=== PATIENT | male | born 1975 | race Caucasian/White ===

== ENCOUNTER → 2020-01-16 | Outpatient (CLI) | payer BC ==
[~2020-01-16] MED LIST: FUROSEMIDE INJ 10 MG/ML 4 ML VIAL ONE
--- NOTE | 2020-01-16 15:23 | Diagnostic Imaging Report ---
Renal Scan with Lasix Washout Clinical information: Crossing vessel and stricture of ureter, concern for hydronephrosis Technique: Following intravenous administration of 10 mCi of Tc-99m MAG3, dynamic images of the kidneys in the posterior projection were obtained through 40 minutes. Lasix 40 mg was administered intravenously at 10 minutes post injection of the tracer. Report: Left kidney: Perfusion of the left kidney is prompt. The kidney has a normal reniform shape. Extraction of tracer from the blood pool is normal. Clearance of tracer from the renal parenchyma is prompt. The pelvicalyceal system is not dilated although a dilated calyx is seen in the upper pole. Increased pooling of tracer is seen within the dilated calyx in the upper pole. No net drainage of tracer from the pelvicalyceal system is seen prior to administration of Lasix. Washout of tracer from the pelvicalyceal system following administration of Lasix is rapid with a T-1/2 of 5 minutes (normal less than 15 minutes). No significant stasis of tracer is seen within the left ureter. Right kidney: Perfusion to the right kidney is prompt. The right kidney has a normal reniform shape. Extraction of tracer by the renal parenchyma is normal. Clearance of tracer from the renal parenchyma is prompt. The pelvicalyceal system is not dilated. Physiologic pooling of tracer is seen within the pelvicalyceal system. Drainage of tracer from the pelvicalyceal system is prompt and adequate prior to administration of Lasix. No significant stasis of tracer is seen within the right ureter. Differential renal function: The left kidney contributes 46% of total renal function and the right kidney contributes 54% (normal 43-57%). Impression: 1. The function of the left kidney is generally normal. A dilated calyx is present in the upper pole. No hydronephrosis is present. No physiologically significant obstruction of the renal collecting system is present. 2. The function of the right kidney is generally normal. No hydronephrosis is present. No physiologically significant obstruction of the renal collecting system is present. 3. The differential renal function is preserved. Signed by: Dr. Capri Banuelos M.D. on 01/16/2020 3:20 PM
== END ==
LOC: NM 12:31
PROVIDERS: ATTEND Urology
DX: N13.5 Crossing vessel and stricture of ureter without hydronephrosis (principal); N20.0 Calculus of kidney
CPT/HCPCS: 78708; A9562; J1940

== ENCOUNTER → 2020-02-24 | Day surgery (SDC) | payer BC ==
[2020-02-23 13:34] LABS: BASOPHILS # (AUTO) 0.1 (0.0-0.1); BASOPHILS % 0.7 % (0.0-1.0); EOSINOPHILS # (AUTO) 0.4 (0.0-0.4); EOSINOPHILS % 5.7 % (0.0-6.0); HEMATOCRIT 40.5 % (38.2-49.6); HEMOGLOBIN 13.8 g/dL (14.0-18.0); LYMPHOCYTES % 30.2 % (18.0-39.1); MEAN CORPUSCULAR HEMOGLOBIN 30.7 pg (28-32); MEAN CORPUSCULAR HGB CONC 34.1 g/dL (31-35); MEAN CORPUSCULAR VOLUME 90.2 fL (81-99); MONOCYTES # (AUTO) 0.6 (0.2-0.8); MONOCYTES % 8.8 % (4.4-11.3); NEUTROPHILS # (AUTO) 3.7 (2.1-6.9); NEUTROPHILS % 54.5 % (38.7-80.0); PLATELET COUNT 207 x10e3/uL (140-360); RED BLOOD COUNT 4.49 x10e6/uL (4.3-5.7); RED CELL DISTRIBUTION WIDTH 12.4 % (11.7-14.4)
[2020-02-23 14:06] LABS: ALANINE AMINOTRANSFERASE 22 IU/L (0-55); ALBUMIN 3.8 g/dL (3.5-5.0); ALBUMIN/GLOBULIN RATIO 1.2 (0.8-2.0); ALKALINE PHOSPHATASE 48 IU/L (40-150); ANION GAP 10.9 mmol/L (8-16); BLOOD UREA NITROGEN 13 mg/dL (7-26); BUN/CREATININE RATIO 12 (6-25); CALCIUM 8.9 mg/dL (8.4-10.2); CARBON DIOXIDE 24 mmol/L (22-29); CHLORIDE 106 mmol/L (98-107); CREATININE, SERUM 1.05 mg/dL (0.72-1.25); EST GLOMERULAR FILTRATION RATE > 60 ML/MIN (60-); GLUCOSE 113 mg/dL (74-118); POTASSIUM 3.9 mmol/L (3.5-5.1); SODIUM 137 mmol/L (136-145)
[~2020-02-24] MED LIST changes: +ALEVE PO; +ANTIBIOTIC; +B&O 60MG R/S 60 MG SUPP PR ONE; +BENADRYL PO; +CEFTRIAXONE SOD 1 GM/NS 50 ML 50 ML IV ONE; +DEXAMETHASONE SOD PHOS INJ 4 MG/ML VIAL ONE; +FENTANYL CITRATE/PF 100MCG/2 ML INJ ONE; -FUROSEMIDE INJ 10 MG/ML 4 ML VIAL ONE; +IOPAMIDOL 300MG/ML 50ML INFUS..BTL IV ONE; +LIDOCAINE HCL 2% LOCAL INJ 5 ML SDV VIAL INJ ONE; +MIDAZOLAM HCL 2 MG/2 ML VIAL ONE; +MULTIVITAMIN PO; +ONDANSETRON HCL INJ 2MG/ML 2ML 2 MG/ML VIAL ONE; +PROPOFOL IV EMULSION 10 MG/ML 20 ML VIAL ONE; +SEVOFLURANE INHAL SOLN 250 ML PEN BTL ONE; +TYLENOL WITH C1 EACH PO
--- OUTSIDE RECORDS SUMMARY | 2020-02-24 07:52 | XMS REPORT ---
Author [facility] Address Unknown Phone Unavailable Care Team Providers Care Automotive Technology Instructor Name Role Phone ARIK ROQUE Unavailable Unavailable Payers Payer Name Policy Type Policy Number Effective Date Expiration Date Problems This patient has no known problems. Allergies, Adverse Reactions, Alerts Allergy Name Allergy Type Status Severity Reaction(s) Onset Date Inactive Date Treating Clinician Comments No Known Allergies DA Active U 2019-02-09 00:00:00 Medications This patient has no known medications. Results Test Description Test Time Test Comments Text Results Atomic Results Result Comments RENAL SCAN W/LASIX 2020-01-16 15:16:00 [place] [address] Patient Name: YUMIKO STERN MR #: [id number] : 1975 Age/Sex: 44/M Req #: [id number] Adm Physician: Ordered by: ARIK ROQUE MD Report #: [id number] Location: NM Room/Bed: Procedure: [id number] NM/RENAL SCAN W/LASIX Exam Date: Exam Time: REPORT STATUS: Signed Renal Scan with Lasix Washout Clinical information: Crossing vess el and stricture of ureter, concern for hydronephrosis Technique: Following intravenous administration of 10 mCi of Tc-99m MAG3, dynamic images of the kidneys in the posterior projection were obtained through 40 minutes. Lasix 40 mg was administered intravenously at 10 minutes post injection of the tracer. Report: Left kidney: Perfusion of the left kidney is prompt. The kidney has a normal reniform shape. Extraction of tracer from the blood pool is normal. Clearance of tracer from the renal parenchyma is prompt. The pelvicalyceal system is not dilated although a dilated calyx is seen in the upper pole. Increased pooling of tracer is seen within the dilated calyx in the upper pole. No net drainage of tracer from the pelvicalyceal system is seen prior to administration of Lasix. Washout of tracer from the pelvicalyceal system following administration of Lasix is rapid with a T-1/2 of 5 minutes (normal less than 15 minutes). No significant stasis of tracer is seen within the left ureter. Right kidney: Perfusion to the right kidney is prompt. The right kidney has a normal reniform shape. Extraction of tracer by the renal parenchyma is normal. Clearance of tracer from the renal parenchyma is prompt. The pelvicalyceal system is not dilated. Physiologic pooling of tracer is seen within the pelvicalyceal system. Drainage of tracer from the pelvicalyceal system is prompt and adequate prior to administration of Lasix. No significant stasis of tracer is seen within the right ureter. Differential renal function: The left kidney contributes 46% of total renal function and the right kidney contributes 54% (normal 43-57%). Impression: 1. The function of the left kidney is generally normal. A dilated calyx is present in the upper pole. No hydronephrosis is present. No physiologically significant obstruction of the renal collecting system is present. 2. The function of the right kidney is generally normal. No hydronephrosis is present. No physiologically significant obstruction of the renal collecting system is present. 3. The differential renal function is preserved. Signed by: Dr. Dede Banuelos M.D. on 01/16/2020 3:20 PM Dictated By: DEDE BANUELOS MD 1520 Transcribed By: MITCH on 01/16/20 1520 COPY TO: ARIK ROQUE MD HGBA1C% 2019-02-10 10:19:00 HGBA1C% (test code=HGBA1C%) 5.6 %A1C 4.8-6.0 RAPID PLASMA [id number] 09:56:00* Test Item Value Reference Range Comments RAPID PLASMA REAGIN (test code=RPR) NONREACTIVE NONREACTIVE CBC W/AUTO [id number] 09:31:00* Test Item Value Reference Range Comments WHITE BLOOD CELL (test code=WBC) 6.57 x10 3/uL 4.5-11.0 RED BLOOD CELL (test code=RBC) 4.13 x10 6/uL 4.00-5.60 HEMOGLOBIN (test code=HGB) 14.4 g/dL 12.5-16.9 HEMATOCRIT (test code=HCT) 41.6 % 37.5-50.7 MEAN CELL VOLUME (test code=MCV) 100.7 fL 81.0-99.0 MEAN CELL HGB (test code=MCH) 34.9 pg 27.0-33.0 MEAN CELL HGB CONCETRATION (test code=MCHC) 34.6 g/dL 33.0-37.0 RED CELL DISTRIBUTION WIDTH CV (test code=RDW) 14.3 % 11.5-14.5 RED CELL DISTRIBUTION WIDTH SD (test code=RDW-SD) 53.5 fL 37.0-54.0 PLATELET COUNT (test code=PLT) 89 x10 3/uL 150-400 MEAN PLATELET VOLUME (test code=MPV) 10.3 fL 7.0-9.0 NEUTROPHIL % (test code=NT%) 81.3 % 56.0-77.0 IMMATURE GRANULOCYTE % (test code=IG%) 0.3 % 0.0-2.0 LYMPHOCYTE % (test code=LY%) 8.7 % 14.0-32.0 MONOCYTE % (test code=MO%) 8.8 % 4.8-9.0 EOSINOPHIL % (test code=EO%) 0.3 % 0.3-3.7 BASOPHIL % (test code=BA%) 0.6 % 0.0-2.0 NUCLEATED RBC % (test code=NRBC%) 0.0 % 0-0 NEUTROPHIL # (test code=NT#) 5.34 x10 3/uL 2.0-7.6 IMMATURE GRANULOCYTE # (test code=IG#) 0.02 x10 3/uL 0.00-0.03 LYMPHOCYTE # (test code=LY#) 0.57 x10 3/uL 1.0-3.8 MONOCYTE # (test code=MO#) 0.58 x10 3/uL 0.1-0.8 EOSINOPHIL # (test code=EO#) 0.02 x10 3/uL 0.0-0.2 BASOPHIL # (test code=BA#) 0.04 x10 3/uL 0.0-0.2 NUCLEATED RBC # (test code=NRBC#) 0.00 x10 3/uL 0.0-0.1 MANUAL DIFF REQUIRED (test code=MDIFF) NO PLT [id number] 09:31:00* Test Item Value Reference Range Comments PLATELET ESTIMATE (test code=PLTEST) 88-110 THOUSAND ADEQUATE CBC W/AUTO [id number] 08:03:00* Test Item Value Reference Range Comments WHITE BLOOD CELL (test code=WBC) 6.57 x10 3/uL 4.5-11.0 RED BLOOD CELL (test code=RBC) 4.13 x10 6/uL 4.00-5.60 HEMOGLOBIN (test code=HGB) 14.4 g/dL 12.5-16.9 HEMATOCRIT (test code=HCT) 41.6 % 37.5-50.7 MEAN CELL VOLUME (test code=MCV) 100.7 fL 81.0-99.0 MEAN CELL HGB (test code=MCH) 34.9 pg 27.0-33.0 MEAN CELL HGB CONCETRATION (test code=MCHC) 34.6 g/dL 33.0-37.0 RED CELL DISTRIBUTION WIDTH CV (test code=RDW) 14.3 % 11.5-14.5 RED CELL DISTRIBUTION WIDTH SD (test code=RDW-SD) 53.5 fL 37.0-54.0 PLATELET COUNT (test code=PLT) 89 x10 3/uL 150-400 MEAN PLATELET VOLUME (test code=MPV) 10.3 fL 7.0-9.0 NEUTROPHIL % (test code=NT%) 81.3 % 56.0-77.0 IMMATURE GRANULOCYTE % (test code=IG%) 0.3 % 0.0-2.0 LYMPHOCYTE % (test code=LY%) 8.7 % 14.0-32.0 MONOCYTE % (test code=MO%) 8.8 % 4.8-9.0 EOSINOPHIL % (test code=EO%) 0.3 % 0.3-3.7 BASOPHIL % (test code=BA%) 0.6 % 0.0-2.0 NUCLEATED RBC % (test code=NRBC%) 0.0 % 0-0 NEUTROPHIL # (test code=NT#) 5.34 x10 3/uL 2.0-7.6 IMMATURE GRANULOCYTE # (test code=IG#) 0.02 x10 3/uL 0.00-0.03 LYMPHOCYTE # (test code=LY#) 0.57 x10 3/uL 1.0-3.8 MONOCYTE # (test code=MO#) 0.58 x10 3/uL 0.1-0.8 EOSINOPHIL # (test code=EO#) 0.02 x10 3/uL 0.0-0.2 BASOPHIL # (test code=BA#) 0.04 x10 3/uL 0.0-0.2 NUCLEATED RBC # (test code=NRBC#) 0.00 x10 3/uL 0.0-0.1 MANUAL DIFF REQUIRED (test code=MDIFF) NO PLT [id number] 08:03:00* Test Item Value Reference Range Comments PLATELET ESTIMATE (test code=PLTEST) THOUSAND ADEQUATE CBC W/AUTO [id number] 08:03:00* Test Item Value Reference Range Comments WHITE BLOOD CELL (test code=WBC) 6.57 x10 3/uL 4.5-11.0 RED BLOOD CELL (test code=RBC) 4.13 x10 6/uL 4.00-5.60 HEMOGLOBIN (test code=HGB) 14.4 g/dL 12.5-16.9 HEMATOCRIT (test code=HCT) 41.6 % 37.5-50.7 MEAN CELL VOLUME (test code=MCV) 100.7 fL 81.0-99.0 MEAN CELL HGB (test code=MCH) 34.9 pg 27.0-33.0 MEAN CELL HGB CONCETRATION (test code=MCHC) 34.6 g/dL 33.0-37.0 RED CELL DISTRIBUTION WIDTH CV (test code=RDW) 14.3 % 11.5-14.5 RED CELL DISTRIBUTION WIDTH SD (test code=RDW-SD) 53.5 fL 37.0-54.0 PLATELET COUNT (test code=PLT) 89 x10 3/uL 150-400 MEAN PLATELET VOLUME (test code=MPV) 10.3 fL 7.0-9.0 NEUTROPHIL % (test code=NT%) 81.3 % 56.0-77.0 IMMATURE GRANULOCYTE % (test code=IG%) 0.3 % 0.0-2.0 LYMPHOCYTE % (test code=LY%) 8.7 % 14.0-32.0 MONOCYTE % (test code=MO%) 8.8 % 4.8-9.0 EOSINOPHIL % (test code=EO%) 0.3 % 0.3-3.7 BASOPHIL % (test code=BA%) 0.6 % 0.0-2.0 NUCLEATED RBC % (test code=NRBC%) 0.0 % 0-0 NEUTROPHIL # (test code=NT#) 5.34 x10 3/uL 2.0-7.6 IMMATURE GRANULOCYTE # (test code=IG#) 0.02 x10 3/uL 0.00-0.03 LYMPHOCYTE # (test code=LY#) 0.57 x10 3/uL 1.0-3.8 MONOCYTE # (test code=MO#) 0.58 x10 3/uL 0.1-0.8 EOSINOPHIL # (test code=EO#) 0.02 x10 3/uL 0.0-0.2 BASOPHIL # (test code=BA#) 0.04 x10 3/uL 0.0-0.2 NUCLEATED RBC # (test code=NRBC#) 0.00 x10 3/uL 0.0-0.1 MANUAL DIFF REQUIRED (test code=MDIFF) NO PLT [id number] 08:03:00* Test Item Value Reference Range Comments PLATELET ESTIMATE (test code=PLTEST) THOUSAND ADEQUATE COMPREHENSIVE METABOLIC [id number] 07:35:00* Test Item Value Reference Range Comments SODIUM (test code=NA) 137 mEq/L 134-147 POTASSIUM (test code=K) 3.1 mEq/L 3.4-5.0 CHLORIDE (test code=CL) 98 mEq/L 100-108 CARBON DIOXIDE (test code=CO2) 29 mEq/L 21-33 ANION GAP (test code=GAP) 13 0-20 GLUCOSE (test code=GLU) 84 mg/dL 70-110 BLOOD UREA NITROGEN (test code=BUN) 15 mg/dL 7-18 GLOMERULAR FILTRATION RATE (test code=GFR) 104.5 95-105 Units of measure=ml/min/1.73 m2 CREATININE (test code=CREAT) 0.8 mg/dL 0.6-1.3 TOTAL PROTEIN (test code=PROT) 7.6 g/dL 6.4-8.2 ALBUMIN (test code=ALB) 3.40 g/dL 3.4-5.0 CALCIUM (test code=CA) 8.0 mg/dL 8.0-10.5 BILIRUBIN TOTAL (test code=BILT) 1.50 mg/dL 0.0-1.0 SGOT/AST (test code=AST) 172 IUnit/L 15-37 SGPT/ALT (test code=ALT) 117 IUnit/L 15-65 ALKALINE PHOSPHATASE TOTAL (test code=ALKP) 81 IUnit/L 20-125 LIPID PROFILE (CORONARY RISK)2019-02-10 07:35:00* Test Item Value Reference Range Comments TRIGLYCERIDES (test code=TRIG) 107 mg/dL 40-150 CHOLESTEROL (test code=CHOL) 240 mg/dL <200 CHOLESTEROL/HDL RATIO (test code=CHOLHDL) 1.68 RATIO 3.43-4.97 RISK ASSOCIATED WITH CHOL/HDL RATIOS: RISK MALE FEMALE1/2 AVERAGE 3.43 3.27AVERAGE 4.97 4.442X AVERAGE 9.55 7.053X AVERAGE 23.39 11.04 NOTE THAT THE REFERENCE VALUE IS RELATEDTO RISK LEVELS RECOMMENDED BY THE NATL.HEART, LUNG, AND BLOOD INST. HDL CHOLESTEROL (test code=HDL) 143.0 mg/dL 32-72 LIPOPROTEIN LDL (test code=LDL) 73 mg/dL 0-100 <100 [id number] NEAR OPTIMAL/ABOVE [id number] HIGH>GR=439 VERY HIGH*Guidelines provided by the National Cholesterol EducationProgram Adult Treatment Panel III [id number] 07:35:00* Test Item Value Reference Range Comments MAGNESIUM (test code=MAG) 1.30 mg/dL 1.8-2.4 T4 [id number] 07:35:00* Test Item Value Reference Range Comments T4 FREE (test code=T4F) 0.9 ng/dL 0.77-1.61 THYROID STIMULATING [id number] 07:35:00* Test Item Value Reference Range Comments THYROID STIMULATING HORMONE (test code=TSH) 2.55 0.42-5.47 Results in laureano-International Units/mL PROTHROMBIN [id number] 05:31:00* Test Item Value Reference Range Comments PROTHROMBIN TIME PATIENT (test code=PTP) 11.4 SECONDS 9.3-12.9 INTERNATIONAL NORMAL RATIO (test code=INR) 1.0 0.8-1.2 TARGET INR BY INDICATION Indication INR1. Prophylaxis of venous thrombosis 2.0 - 3.0 (orthopedic surgery), Prophylaxis of venous thrombosis (other than high-risk surgery), Treatment of Deep Vein Thrombosis/Pulmonary Embolism, Prevention of systemic embolism - Tissue heart valves, Acute Myocardial Infarction (to prevent systemic embolism), Valvular heart disease, Atrial Fibrillation, Bileaflet mechanical valve in aortic position.2. Mechanical prosthetic valves (high risk), 2.5 - 3.5 Presence of Lupus Anticoagulant or Antiphospholipid Antibodies, Prevention of systemic embolism - Acute Myocardial Infarction (to prevent recurrent infarct). - CT ANGIO [id number] 00:41:00 Name: YUMIKO STERN [facility] : 1975 Age/S: 43 / M [address] [place] [address] Unit #: [id number] Loc: [place] [address] Phys: Yancy Melendez MD Acct: [id number] Dis Date: Status: REG ER PHONE #: [phone] Exam Date: 02/09/2019 0007 FAX #: [phone] Reason: elevated ddimer, rbbb on ecg EXAMS: CPT CODE: [id number] CT ANGIO CHEST [id number] EXAM: CT, CTA CHEST: 02/09/2019 Clinical Indication: Vomiting. Elevated d-dimer. Comparison: Chest radiograph dated 02/09/2019. TECHNIQUE: CTA of the pulmonary arteries was performed with 100 cc Omnipaque intravenous contrast. Helical imaging performed apices to the lung bases. Multiplanar reconstructions were obtained. 3-D postprocessing reconstruction MIP imaging was performed. CT imaging was performed with exposure control parameters to reduce radiation dose. CT Radiation Dose DLP: 365.67 mGy-cm FINDINGS: VASCULAR STRUCTURES: No segmental pulmonary emboli noted. The main, right and left pulmonary arteries are normal. The thoracic aorta is within normal limits. There is no dissection or aneurysm. The great vessels appear unremarkable. The superior vena cava is unremarkable. HEART: The cardiac chambers are unremarkable. There is no CT evidence of right ventricular strain. There is no pericardial effusion. LUNG PARENCHYMA AND PLEURA: No lung nodules visualized. No definite CT evidence of interstitial lung disease. No CT evidence of pneumonia or airspace disease. There are no pleural effusions. There is no pneumothorax. AIRWAYS: The central airway is unremarkable. Trachea is midline. MEDIASTINUM: No significant mediastinal lymphadenopathy. VISUALIZED UPPER A BDOMEN: Diffuse hepatic steatosis seen. Sludge in the gallbladder. OSSEOUS STRUCTURES: Old left 9th and 10th posterior rib fractures. PAGE 1 Signed Report (C ONTINUED) Name: YUMIKO STERN [facility] : 1975 Age/S: 43 / M [address] [place] [address] it #: [id number] Loc: [place] [address] Phys: Yancy Melendez MD Acct: [id number] Dis Date: Status: REG ER PHONE #: [phone] Exam Date: 02/09/2019 0007 FAX #: [phone] Reason: elevated ddimer, rbbb on ecg E XAMS: CPT CODE: [id number] CT ANGIO CHEST 07809 <Continued> IMPRESSION: 1. No segmental pulmonary embolism or thoracic aortic dissection. 2. Hepatic steatosis. SL: BRENDA at 0041 Reported and signed by: Juan R Brar M.D. CC: Yancy Melendez MD Technologist:RT Rafita(R) CTDI: DLP: Trnscb Date/Time: 02/10/2019 (40) [id number] Orig Print D/T: S: 02/10/2019 (004) CTDI: DLP: PAGE 2 Signed Report [id number] 23:04:00* Test Item Value Reference Range Comments D-DIMER (test code=DDIMER) 1261 ng/mlFEU <=500 THROMBOSIS AND/OR PULMONARY EMBOLISM AND THE CLINICAL CUT- OFF VALUE FOR EXCLUSION (500 ng/mL FEU) OF THESE CONDITIONSIS VALIDATED BY THE TUMBLER MACHINE OPERATOR HELPER OF THE METHOD. A NEGATIVE D-DIMER RESULT WHEN COMBINED WITH A CLINICALASSESSMENT OF LOW PRETEST PROBABILITY HAS BEEN SHOWN TO HAVEA HIGH NEGATIVE PREDICTIVE VALUE OF DVT OR PE. D-DIMER VALUES >500 ng/mL FEU ARE NOT DIAGNOSTIC FOR DVT, PEor DIC WITHOUT OTHER CONFIRMATORY TESTS AND APPROPRIATECLINICAL EUALUATIONS. URINALYSIS [id number] 22:58:00* Test Item Value Reference Range Comments UA COLOR (test code=COLU) SALEEM YEL/STRAW UA APPEARANCE (test code=APPU) TURBID CLEAR UA GLUCOSE DIPSTICK (test code=DGLUU) NEGATIVE NEGATIVE UA BILIRUBIN DIPSTICK (test code=BILU) NEGATIVE NEGATIVE UA KETONE DIPSTICK (test code=KETU) 1+ NEGATIVE UA SPECIFIC GRAVITY (test code=SGU) 1.023 1.005-1.030 UA BLOOD DIPSTICK (test code=RADHA) 3+ NEGATIVE UA PH DIPSTICK (test code=ONEL) 5.0 5.0-7.0 UA PROTEIN DIPSTICK (test code=PROU) 2+ NEGATIVE UA UROBILINIOGEN DIPSTICK (test code=URO) 4.0 mg/dL 0.2-1.0 UA NITRITE DIPSTICK (test code=TYLOR) NEGATIVE NEGATIVE UA LEUKOCYTE ESTERASE DIPSTICK (test code=LEUU) 2+ NEGATIVE UA WBC (test code=WBCU) >50 WBC/HPF 0-3 UA RBC (test code=RBCU) >50 RBC/HPF 0-3 UA BACTERIA (test code=BACU) NONE SEEN /HPF NONE SEEN UA SQUAMOUS CELLS (test code=SQU) 0-5 /HPF NONE SEEN UA MUCUS (test code=MUCU) 4+ /LPF NONE SEEN COMPREHENSIVE METABOLIC [id number] 22:54:00* Test Item Value Reference Range Comments SODIUM (test code=NA) 134 mEq/L 134-147 POTASSIUM (test code=K) 3.5 mEq/L 3.4-5.0 CHLORIDE (test code=CL) 94 mEq/L 100-108 CARBON DIOXIDE (test code=CO2) 29 mEq/L 21-33 ANION GAP (test code=GAP) 15 0-20 GLUCOSE (test code=GLU) 102 mg/dL 70-110 BLOOD UREA NITROGEN (test code=BUN) 15 mg/dL 7-18 GLOMERULAR FILTRATION RATE (test code=GFR) 91.3 95-105 Units of measure=ml/min/1.73 m2 CREATININE (test code=CREAT) 0.9 mg/dL 0.6-1.3 TOTAL PROTEIN (test code=PROT) 9.3 g/dL 6.4-8.2 ALBUMIN (test code=ALB) 4.00 g/dL 3.4-5.0 CALCIUM (test code=CA) 8.9 mg/dL 8.0-10.5 BILIRUBIN TOTAL (test code=BILT) 1.90 mg/dL 0.0-1.0 SGOT/AST (test code=AST) 250 IUnit/L 15-37 SGPT/ALT (test code=ALT) 153 IUnit/L 15-65 ALKALINE PHOSPHATASE TOTAL (test code=ALKP) 96 IUnit/L 20-125 CREATINE KINASE (CK)2019-02-09 22:54:00* Test Item Value Reference Range Comments CREATINE KINASE (CK) (test code=CK) 251 35-232 Result is in INTERNATIONAL UNITS/LITER [id number] 22:54:00* Test Item Value Reference Range Comments LIPASE (test code=LIP) 199 IUnit/L 73-393 [id number] 22:54:00* Test Item Value Reference Range Comments TROPONIN-I (test code=TROPI) < 0.015 ng/mL 0.000-0.045 Negative: <=0.045 Positive: >=0.046 Correlation with serial results, other cardiac markers andclinical findings is necessary to determine the clinicalsignificance of this result. Results using different methodologies should not be comparedto one another as quantitative results may vary by method. CBC W/AUTO [id number] 22:36:00* Test Item Value Reference Range Comments WHITE BLOOD CELL (test code=WBC) 8.28 x10 3/uL 4.5-11.0 RED BLOOD CELL (test code=RBC) 4.51 x10 6/uL 4.00-5.60 HEMOGLOBIN (test code=HGB) 15.7 g/dL 12.5-16.9 HEMATOCRIT (test code=HCT) 44.9 % 37.5-50.7 MEAN CELL VOLUME (test code=MCV) 99.6 fL 81.0-99.0 MEAN CELL HGB (test code=MCH) 34.8 pg 27.0-33.0 MEAN CELL HGB CONCETRATION (test code=MCHC) 35.0 g/dL 33.0-37.0 RED CELL DISTRIBUTION WIDTH CV (test code=RDW) 14.0 % 11.5-14.5 RED CELL DISTRIBUTION WIDTH SD (test code=RDW-SD) 51.7 fL 37.0-54.0 PLATELET COUNT (test code=PLT) 110 x10 3/uL 150-400 MEAN PLATELET VOLUME (test code=MPV) 10.2 fL 7.0-9.0 NEUTROPHIL % (test code=NT%) 85.7 % 56.0-77.0 IMMATURE GRANULOCYTE % (test code=IG%) 0.5 % 0.0-2.0 LYMPHOCYTE % (test code=LY%) 6.4 % 14.0-32.0 MONOCYTE % (test code=MO%) 6.6 % 4.8-9.0 EOSINOPHIL % (test code=EO%) 0.1 % 0.3-3.7 BASOPHIL % (test code=BA%) 0.7 % 0.0-2.0 NUCLEATED RBC % (test code=NRBC%) 0.0 % 0-0 NEUTROPHIL # (test code=NT#) 7.09 x10 3/uL 2.0-7.6 IMMATURE GRANULOCYTE # (test code=IG#) 0.04 x10 3/uL 0.00-0.03 LYMPHOCYTE # (test code=LY#) 0.53 x10 3/uL 1.0-3.8 MONOCYTE # (test code=MO#) 0.55 x10 3/uL 0.1-0.8 EOSINOPHIL # (test code=EO#) 0.01 x10 3/uL 0.0-0.2 BASOPHIL # (test code=BA#) 0.06 x10 3/uL 0.0-0.2 NUCLEATED RBC # (test code=NRBC#) 0.00 x10 3/uL 0.0-0.1 MANUAL DIFF REQUIRED (test code=MDIFF) NO TROPONIN-I [id number] 22:33:00* Test Item Value Reference Range Comments TROPONIN-I RAPID (test code=TROPIRAP) 0.00 ng/mL 0.00-0.08 Performed by certified dumbwaiter operator at [facility]A Global Task Force with joint leadership from the EuropeanSociety of Cardiology (ESC), the [place] [employer] Foundation (ACCF), the [place] Heart Association(AHA) and the World Heart Federation (WHF) refined past criteria of myocardial infarction (PR) with a universal definition of myocardial infarction that supports the use of cTnI as a preferred biomarker for myocardial injury. The universal definition of PR, according to this taskforce, is defined as a typical rise and gradual fall ofcardiac biomarkers (preferably troponin) with at least onevalue above the 99th percentile of the upper reference limit (URL) together with evidence of myocardial ischemia with at least one of the following:* ischemic symptoms,* pathological Q waves on electrocardiogram (ECG),* ischemic ECG changes,* or imaging evidence of new loss of viable myocardium or new regional wall motion abnormality. An elevated troponin value alone is not sufficient todiagnose a myocardial infarction. Rather, the patient sclinical presentation (history, physical exam) and ECGshould be used in conjunction with troponin in thediagnostic evaluation of suspected myocardial infarction. Aserial sampling protocol is recommended to facilitate the identification of temporal changes in troponin levels characteristic of PR. - XR CHEST 2 [id number] 21:16:00 FAX: Yancy Melendez MD [phone] Mico: [employer] [address]: REG Name: Cecilio YUMIKO DE LA VEGA [facility] : [birth year] Age/S: 43/M [address] [place] [address] Unit #: [id number] Loc: [place] [address] Phys: Yancy Melendez MD Acct: [id number] Dis Date: Status: REG ER PHONE #: [phone] Exam Date: 02/09/20192105 FAX #: [phone] Reason: fever chills EXAMS: CPT CODE: [id number] XR CHEST 2 V [id number] PROCEDURE: - XR CHEST 2 V INDICATION: 43 years Male, fever chills. COMPARISON: None. FINDINGS: The cardiomediastinal silhouette and pulmonary vasculature are within normal limits for projection and degree of inspiration. No lobar consolidation, effusion, or pneumothorax. No pleural abnormalities are seen. No acute bony abnormalities. IMPRESSION: No acute intrathoracic abnormalities. SL: SELMA Heather rivas Signed by Bessie Holland on 02/09/2019 at 2116 Rep orted and signed by: Jose Antonio Holland M.D. CC: Yancy vann MD Technologist: Ana Luisa Kilpatrick, RT(R) (M) Trnscrd Date/Time/By: 02/09/2019 (2115) : By: [email or web address] [email or web address] Orig Print D/T: S: 02/09/2019 (2119) JANETT DIETZ 1 Signed Report
--- NOTE | 2020-02-24 09:47 | Diagnostic Imaging Report ---
Exam: Abdominal film Clinical History: Preop for kidney stone surgery Comparison: None. DISCUSSION: 3.8 x 4.4 cm calculus fills the left renal pelvis with multiple smaller calculi within the calyces. No calcifications project over the right renal shadow, expected ureteral courses, or pelvis. Transitional lumbosacral anatomy with otherwise intact regional skeletal structures. Bowel gas pattern is nonobstructive. IMPRESSION: Left renal staghorn calculus. Signed by: Dr. Terrence Farfan M.D. on 02/24/2020 9:43 AM
[2020-02-24 12:40] VITALS: BP 128/88
--- NOTE | 2020-02-26 16:26 | Operative Report ---
DATE OF PROCEDURE: 02/24/2020 SURGEON: Bryan Wells MD PREOPERATIVE DIAGNOSES: 1. Left staghorn calculus. 2. Urinary tract infections. 3. Hematuria. 4. Left hydronephrosis. POSTOPERATIVE DIAGNOSES: 1. Left staghorn calculus. 2. Urinary tract infections. 3. Hematuria. 4. Left hydronephrosis. 5. Right Hutch diverticulum. TEST PERFORMED: 1. Left-sided extracorporeal shockwave lithotripsy (separate staged procedure to treat the stone). 2. Cystourethroscopy with bilateral ureteral catheterization and retrograde ureteropyelography (separate procedure performed for the hematuria and urinary tract infections). 3. Interpretation of retrograde ureteropyelography. 4. Supervision of fluoroscopy, no radiologist present. 5. Cystourethroscopy with insertion of left indwelling ureteral stent (separate procedure performed to relieve the hydronephrosis). ANESTHESIA: General. COMPLICATIONS: None. CLINICAL SUMMARY: Tahir Glover is a 44-year-old man who has a history of urinary tract infections, hematuria. He has an extremely large left staghorn calculus that essentially transformed through the entire shape of his kidney. The patient is brought for the first time of numerous procedures to manage his stone. He is aware of the risks of bleeding, infection, injury to adjacent structures, need for additional procedures and elected to proceed. This procedure is not elective as waiting 2 months for the COVID-19 emergency to resolve will pose this kidney at risk for stone growth, infection, and damage. DESCRIPTION OF PROCEDURE: Informed consent was verified, Tahir Glover was properly identified, taken to the operating room, and placed on the lithotripsy table in supine position. Anesthesia was uneventfully begun. The patient's distal-most portion of the left nephrolithiasis was localized with biplanar fluoroscopy. A total of 3000 shocks were delivered with fragmentation noted. Cystourethroscopy with bilateral ureteral catheterization and retrograde ureteropyelography (separate procedure performed), this fragmentation allowed the distal portion of the renal pelvis to not be filled with stone fragments as opposed to a solid stone. The patient was then carefully gently repositioned in the dorsal lithotomy position with all pressure points well padded. His genitalia were prepared and draped in usual sterile fashion. The cystoscope sheath with the visual obturator in place was atraumatically inserted into the patient's urethra and was guided down to unremarkable distal urethra through the normal sphincteric region through the prostate bed, which was significant for an early BPH with mild obstruction. We entered the patient's bladder where panendoscopy revealed a Hutch diverticulum into the synovial right ureteral orifice. There were no suspicious lesions. There were no stones. A 5-Upper Sorbian open-ended catheter was used to cannulate the right ureter and retrograde ureteral pyelograms performed, it was then inserted into left ureter and retrograde ureteropyelography performed. A guidewire was then placed into the left ureter and guided to the level of the patient's kidney. With cystoscopic and fluoroscopic guidance, a left-sided indwelling ureteral stent was then placed, it was coiled in the patient's kidneys as well as the patient's bladder. The retaining suture was cut short. Interpretation of retrograde ureteropyelography contrast was instilled in retrograde fashion bilaterally. The right side was unremarkable. There were no tumors. There were no stones. There were no suspicious lesions. There were no diverticula. Unobstructed drainage was observed fluoroscopically. The left side exhibited an unremarkable ureter with some narrowing at the level of the ureteropelvic junction. There was a massive staghorn stone that is now fragmented distally. There was some fullness around the stone. The stent was in good position coiled the patient's kidneys as well as the patient's bladder at the end of the case. The patient's bladder was drained. Cystoscope was withdrawn. Belladonna and opium suppository were placed revealing a 25 g prostate, smooth and non-fluctuant without any nodules. The patient was then uneventfully reversed from anesthesia and taken to recovery room in stable condition. There were no complications to the procedure. The patient tolerated the procedure well. Explicit postop instructions were given. We will follow the patient up by returning him to the operating room for another ESWL in several weeks. Also, we will order a nuclear medicine renal scan to evaluate the differential renal function. Bryan Wells MD OH/MODL /[id number] MARINA
== END | disposition home or self-care (01) ==
LOC: OR 07:49
PROVIDERS: ATTEND Urology
DX: N20.0 Calculus of kidney (principal); N13.30 Unspecified hydronephrosis; N39.0 Urinary tract infection, site not specified; N32.3 Diverticulum of bladder; R35.1 Nocturia; R80.9 Proteinuria, unspecified; N52.9 Male erectile dysfunction, unspecified; K42.9 Umbilical hernia without obstruction or gangrene; E66.9 Obesity, unspecified; F17.210 Nicotine dependence, cigarettes, uncomplicated; Z01.810 Encounter for preprocedural cardiovascular examination; Z84.1 Family history of disorders of kidney and ureter
CPT/HCPCS: 36415; 50590; 52332; 74018; 80053; 83970; 84550; 85025; 93005; C2617; J0696; J1100; J2001; J2250; J2405; J2704; J3010; Q9967

== ENCOUNTER → 2020-03-14 | Day surgery (SDC) | payer BC ==
[~2020-03-14] MED LIST changes: -B&O 60MG R/S 60 MG SUPP PR ONE; -IOPAMIDOL 300MG/ML 50ML INFUS..BTL IV ONE
--- NOTE | 2020-03-14 07:46 | Diagnostic Imaging Report ---
EXAM: Abdomen Radiograph 1 View(s) INDICATION: Stones COMPARISON: Abdominal x-ray 02/24/2020 FINDINGS: No abnormalities in the lower chest. Internal left nephroureteral catheter appears appropriate in position. Normal volume of stool in the colon. No dilated loops of small bowel. Left renal staghorn calculus and multiple additional left renal calculi. No abnormal soft tissue masses. No pneumoperitoneum. No acute osseous abnormality. Lumbosacral transitional anatomy. IMPRESSION: Left renal staghorn calculi. Internal left nephroureteral catheter appears appropriate in position. Signed by: Femi Escoto DO on 03/14/2020 7:43 AM
--- NOTE | 2020-03-14 08:53 | Operative Report ---
DATE OF PROCEDURE: 03/14/2020 SURGEON: Bryan Wells MD PREOPERATIVE DIAGNOSIS: Massive left nephrolithiasis. POSTOPERATIVE DIAGNOSIS: Massive left nephrolithiasis. OPERATIONS PERFORMED: 1. Staged left-sided extracorporeal shockwave lithotripsy. 2. Supervision of fluoroscopy, no radiologist present. ANESTHESIA: General. COMPLICATIONS: None. CLINICAL SUMMARY: Tahir Glover is a 44-year-old man with a massive staghorn calculus. The patient's staghorn calculus is virtually an image of the entire kidneys collecting system. The patient underwent ESWL and placement of a stent. He has stent discomfort and has been managing it with narcotic medication as well as anticholinergic medication as well as phenazopyridine [id number]. The patient is brought for a staged ESWL. He has passed significant amount of sand as a result of the prior ESWL and is brought for another treatment. He is aware of the risks of bleeding, infection, injury to adjacent structures, need for additional procedures and elected to proceed. This procedure is not elective. This procedure is done during the COVID-19 crisis due to the fact that the patient has persistent pain and a kidney stone with potential to increase and cause further deterioration of the patient's left kidney function. Preservation of this kidney function is requiring us to perform multiple procedures on this massive stone in order to be able to clear it so that the patient's kidney may be rehabilitated and hopefully prevent loss of this kidney. The patient understands the risk of coronavirus infection caused by leaving his house is outweighed by the risk of damage to and deteriorations of his left kidney. He also wants to proceed and be one step closer to eliminating the need for his stent. PROCEDURE IN DETAIL: Informed consent was verified. Mr. Glover was properly identified, taken to the operating room, placed on the lithotripsy table in supine position. Anesthesia was uneventfully begun. The patient's left nephrolithiasis was localized with biplanar fluoroscopy. A total of 3000 shocks were delivered starting at stone fragment at the ureteropelvic junction and proceeding with the distal portion of the renal pelvic stone. There was definite fragmentation of the areas where we treated and slow, but steady progress to eliminating this stone. The patient was uneventfully reversed from anesthesia, taken to recovery room in stable condition. There were no complications to the procedure. The patient tolerated the procedure well. Plans will be to return the patient to the operating room in several weeks for another ESWL. Once we have fragmented the entire staghorn calculus and achieved room to work in mobility we will consider a percutaneous nephrostolithotomy in order to render the patient stone free and stent free. This procedure however is several ESWL procedures away. Bryan Wells MD [facility]/MODL /[id number] cc: Bryan Wells MD
[2020-03-14 09:00] VITALS: BP 131/93
== END | disposition home or self-care (01) ==
LOC: OR 05:20
PROVIDERS: ATTEND Urology
DX: N20.0 Calculus of kidney (principal); Z96.0 Presence of urogenital implants; M54.9 Dorsalgia, unspecified; F17.210 Nicotine dependence, cigarettes, uncomplicated
CPT/HCPCS: 50590; 74018; J0696; J1100; J2001; J2250; J2405; J2704; J3010

== ENCOUNTER → 2020-04-04 | Day surgery (SDC) | payer BC ==
--- NOTE | 2020-03-30 10:13 | Diagnostic Imaging Report ---
Exam: KUB - 2 views Indication: Preoperative Comparison: KUB of 03/14/2020 Findings: Left internal nephroureteral stent in place. Unchanged appearance and configuration of left staghorn renal calculi. Unchanged 5 mm calcific densities in the pelvis adjacent to the stent may represent ureteral calculi. No radiographically apparent right urinary calculi. Nonobstructive bowel gas pattern. No free air. No acute osseous injury. Impression: Unchanged left staghorn renal calculi and calcific densities in the left pelvis adjacent to the stent, possibly ureteral calculi. Signed by: Libertad Tapia MD on 03/30/2020 10:10 AM
[~2020-04-04] MED LIST changes: -CEFTRIAXONE SOD 1 GM/NS 50 ML 50 ML IV ONE; +LEVOFLOXACIN 500MG/D5W 100ML 100 ML IV ONE
[2020-04-04 09:20] VITALS: BP 124/90
--- NOTE | 2020-04-04 10:54 | Operative Report ---
DATE OF PROCEDURE: 04/04/2020 SURGEON: Bryan Wells MD PREOPERATIVE DIAGNOSIS: Left nephrolithiasis. POSTOPERATIVE DIAGNOSIS: Left nephrolithiasis. OPERATIONS PERFORMED: 1. Staged left-sided extracorporeal shockwave lithotripsy. 2. Supervision of fluoroscopy, no radiologist present. ANESTHESIA: General. COMPLICATIONS: None. CLINICAL SUMMARY: Tahir Glover is a 44-year-old man with severe staghorn calculus. He is brought for the above procedures. He is aware of the risks of bleeding, infection, injury to adjacent structures, need for additional procedures, and elected to proceed. KUB performed preoperatively, had a reading that there was no change in the stone burden, that is incorrect there was dramatic change in stone burden as most of the stone burden is fragmented, where previously it was a solid stone. This procedure was performed in the [facility]- emergency situation due to the fact that it is not elective. The patient has massive stone that is an infection stone. He has recurrent infections, which pose additional risk and it is important that we get rid of the stones as quickly as possible to rehabilitate this already partially damaged kidney. OPERATIVE PROCEDURE IN DETAIL: Informed consent was verified. Tahir Glover was properly identified, taken to the operating room, placed on the lithotripsy table in supine position, and anesthesia was uneventfully begun. The patient's left nephrolithiasis was localized with biplanar fluoroscopy. A total of 3000 shocks were delivered. The shocks initially to the UPJ region, the proximal ureteral region, and once we did that, we then worked on the solid stone in the lower pole that we have not treated before. The rest of the kidney has been treated except for some peripheral calices. Multiple fragmented stones were identified. The patient was then uneventfully reversed from anesthesia, and taken to recovery in stable condition. No complications to the procedure and he tolerated the procedure well. Plans will be to bring back to the operating room in several weeks to perform another left ESWL. Eventually, endoscopic stone management will be warranted. Bryan Wells MD [facility]/MODL /[id number]
== END | disposition home or self-care (01) ==
LOC: OR 06:01
PROVIDERS: ATTEND Urology
DX: N20.0 Calculus of kidney (principal); N13.30 Unspecified hydronephrosis; N40.1 Benign prostatic hyperplasia with lower urinary tract symptoms; R35.1 Nocturia; R39.14 Feeling of incomplete bladder emptying; R80.9 Proteinuria, unspecified; N32.3 Diverticulum of bladder; K42.9 Umbilical hernia without obstruction or gangrene; N52.9 Male erectile dysfunction, unspecified; E66.9 Obesity, unspecified; F17.200 Nicotine dependence, unspecified, uncomplicated; Z01.812 Encounter for preprocedural laboratory examination; Z01.818 Encounter for other preprocedural examination; Z11.59 Encounter for screening for other viral diseases; Z84.1 Family history of disorders of kidney and ureter
CPT/HCPCS: 50590; 74018; 87635; J1100; J1956; J2001; J2250; J2405; J2704; J3010

== ENCOUNTER → 2020-05-16 | Day surgery (SDC) | payer BC, OTHER ==
--- NOTE | 2020-05-12 10:05 | Diagnostic Imaging Report ---
EXAM: Abdomen 2 Views INDICATION: ^PREOP ^[id number] ^[id number] COMPARISON: 03/30/2020, 03/14/2020 FINDINGS: Lines/tubes: None. Moderate amount of stool in the colon. No dilated loops of small bowel. Left ureteral stent in place. The proximal aspect is slightly more superior within the upper pole of the left kidney when compared to prior exam. Left nephrolithiasis appears stable. A 5 mm stone overlying the distal left ureter is unchanged. The additional previously seen 5 mm stone more superiorly located in the left ureter is not well seen on this exam. No abnormal soft tissue masses. No degenerative changes in the lumbar spine and pelvis. IMPRESSION: Left ureteral stent slightly more superiorly located when compared to prior exam. Stable stone burden of the left kidney and distal left ureteral stone. The additional left ureteral stone is not seen on this exam. Signed by: Dr. Irma Sanchez M.D. on 05/12/2020 10:01 AM
[~2020-05-16] MED LIST changes: +CEFTRIAXONE SOD 1 GM/NS 50 ML 50 ML IV ONE; -LEVOFLOXACIN 500MG/D5W 100ML 100 ML IV ONE
--- NOTE | 2020-05-16 07:15 | NUR ---
SPIRITUAL CARE - Pre-Surgery Assessment: Pt in bed. Pt's at bedside. Pt reported supportive attention from family and friends. Intervention: [employer] provided pastoral presence, hospitality, and sympathetic listening. Acquainted pt with availability of nurse case manager while hospitalized. Outcome: Pt expressed appreciation for visit. No need for follow up indicated at this time. [facility] Department O: [phone]
[2020-05-16 10:55] VITALS: BP 135/90
--- NOTE | 2020-07-02 01:35 | Operative Report ---
DATE OF PROCEDURE: 05/16/2020 SURGEON: Bryan Wells MD PREOPERATIVE DIAGNOSIS: Left nephrolithiasis. POSTOPERATIVE DIAGNOSIS: Left nephrolithiasis. OPERATIONS PERFORMED: 1. Staged left-sided extracorporeal shockwave lithotripsy. 2. Supervision of fluoroscopy, no radiologist present. ANESTHESIA: General. COMPLICATIONS: None. CLINICAL SUMMARY: Tahir Glover is a 44-year-old man with a large left nephrolithiasis. He is brought for staged procedure. He is aware of the risks of bleeding, infection, injury to adjacent structures, need for additional procedures and elected to proceed. OPERATIVE PROCEDURE IN DETAIL: Informed consent was verified. Tahir Glover was properly identified, taken to the operating room, placed on the lithotripsy table in supine position. Anesthesia was uneventfully begun. The patient's large left nephrolithiasis was localized with biplanar fluoroscopy. A total of 3000 shocks were delivered with some fragmentation noted. The patient was then uneventfully reversed from anesthesia and taken to recovery room in stable condition. There were no complications to the procedure. The patient tolerated the procedure well. PLAN: Plans will be to return the patient to the operating room after several weeks to perform left ureteroscopy with holmium laser lithotripsy and stent change. It is possible that another lithotripsy may be . Bryan Wells MD OH/MODL /[id number]
== END | disposition home or self-care (01) ==
LOC: OR 05:54
PROVIDERS: ATTEND Urology
DX: N20.0 Calculus of kidney (principal); Z11.59 Encounter for screening for other viral diseases; Z01.812 Encounter for preprocedural laboratory examination; Z01.818 Encounter for other preprocedural examination
CPT/HCPCS: 50590; 74018; 87635; J0696; J1100; J2001; J2250; J2405; J2704; J3010; U0002

== ENCOUNTER → 2022-03-21 | Day surgery (SDC) | payer BC ==
[2022-03-20 09:35] LABS: BASOPHILS # (AUTO) 0.1 (0.0-0.1); BASOPHILS % 1.6 % (0.0-1.0); EOSINOPHILS # (AUTO) 0.1 (0.0-0.4); EOSINOPHILS % 1.8 % (0.0-6.0); HEMOGLOBIN 14.6 g/dL (14.0-18.0); LYMPHOCYTES % 25.3 % (18.0-39.1); MEAN CORPUSCULAR HEMOGLOBIN 34.4 pg (28-32); MEAN CORPUSCULAR HGB CONC 34.8 g/dL (31-35); MEAN CORPUSCULAR VOLUME 99.1 fL (81-99); MONOCYTES # (AUTO) 0.6 (0.2-0.8); MONOCYTES % 14.7 % (4.4-11.3); NEUTROPHILS # (AUTO) 2.1 (2.1-6.9); NEUTROPHILS % 56.1 % (38.7-80.0); PLATELET COUNT 164 x10e3/uL (140-360); RED BLOOD COUNT 4.24 x10e6/uL (4.3-5.7); RED CELL DISTRIBUTION WIDTH 13.2 % (11.7-14.4)
[2022-03-20 09:57] LABS: ANION GAP 20.8 mmol/L (8-16); CALCIUM 8.9 mg/dL (8.4-10.2); CREATININE, SERUM 0.76 mg/dL (0.72-1.25); POTASSIUM 3.8 mmol/L (3.5-5.1)
[~2022-03-21] MED LIST changes: +B&O 60MG R/S 60 MG SUPP PR ONE; -CEFTRIAXONE SOD 1 GM/NS 50 ML 50 ML IV ONE; +DEXAMETHASONE SOD PHOS INJ 4 MG/ML SDV ONE; -DEXAMETHASONE SOD PHOS INJ 4 MG/ML VIAL ONE; +EPHEDRINE SULFATE INJ 50 MG/ML VIAL ONE; +GENTAMICIN 80MG/NS 100 ML 200 ML IV ONE; +IOHEXOL 300 MG/ML 30ML INFUS..BTL ONE; +LEVOFLOXACIN 500MG/D5W 100ML 100 ML IV ONE; +POVIDONE IODINE 0.05% 0.05 % ML PO ONE
[2022-03-21 09:10] VITALS: BP 143/100
== END | disposition home or self-care (01) ==
LOC: OR 06:02
PROVIDERS: ATTEND Urology
DX: N20.0 Calculus of kidney (principal); N13.30 Unspecified hydronephrosis; N39.0 Urinary tract infection, site not specified; Z46.6 Encounter for fitting and adjustment of urinary device; N40.0 Benign prostatic hyperplasia without lower urinary tract symptoms; R35.1 Nocturia; R80.9 Proteinuria, unspecified; N32.3 Diverticulum of bladder; N52.9 Male erectile dysfunction, unspecified; E66.9 Obesity, unspecified; K76.0 Fatty (change of) liver, not elsewhere classified; K42.9 Umbilical hernia without obstruction or gangrene; F17.210 Nicotine dependence, cigarettes, uncomplicated; Z01.810 Encounter for preprocedural cardiovascular examination; Z01.812 Encounter for preprocedural laboratory examination; Z20.822 Contact with and (suspected) exposure to COVID-19; Z84.1 Family history of disorders of kidney and ureter
CPT/HCPCS: 36415; 50590; 52332; 80048; 84550; 85025; 93005; C1758; C2617; J1100; J1580; J1956; J2001; J2250; J2405; J2704; J3010; Q9967; U0002

== ENCOUNTER → 2022-05-16 | Day surgery (SDC) | payer BC ==
[2022-05-14 08:54] LABS: BASOPHILS # (AUTO) 0.1 (0.0-0.1); BASOPHILS % 1.8 % (0.0-1.0); EOSINOPHILS # (AUTO) 0.1 (0.0-0.4); EOSINOPHILS % 2.6 % (0.0-6.0); HEMATOCRIT 47.3 % (38.2-49.6); HEMOGLOBIN 16.1 g/dL (14.0-18.0); MEAN CORPUSCULAR HEMOGLOBIN 34.8 pg (28-32); MEAN CORPUSCULAR VOLUME 102.2 fL (81-99); MONOCYTES # (AUTO) 0.5 (0.2-0.8); MONOCYTES % 10.9 % (4.4-11.3); NEUTROPHILS # (AUTO) 3.2 (2.1-6.9); NEUTROPHILS % 64.5 % (38.7-80.0); PLATELET COUNT 182 x10e3/uL (140-360); RED BLOOD COUNT 4.63 x10e6/uL (4.3-5.7); RED CELL DISTRIBUTION WIDTH 13.9 % (11.7-14.4)
[2022-05-14 09:39] LABS: ANION GAP 20.6 mmol/L (8-16); CREATININE, SERUM 0.8 mg/dL (0.72-1.25); POTASSIUM 4.6 mmol/L (3.5-5.1)
[~2022-05-16] MED LIST changes: +ADVIL200 M1 PO; -B&O 60MG R/S 60 MG SUPP PR ONE; +BELLADONNA/OPIUM 30 MG SUPP RC ONE; +CEFTRIAXONE 1 GM VIAL ONE; +HYDRALAZINE HCL 20 MG/ML VIAL ONE; -IOHEXOL 300 MG/ML 30ML INFUS..BTL ONE; +IOPAMIDOL 610MG/1ML 300 MG/ML VIAL IV ONE; +LABETALOL HCL 0 ML ONE; +LABETALOL HCL 20 ML ONE; -LEVOFLOXACIN 500MG/D5W 100ML 100 ML IV ONE; +NEXIUM OTC PO; +TYLENOL #3 PO
[2022-05-16 12:35] VITALS: BP 131/95
== END | disposition home or self-care (01) ==
LOC: OR 08:04
PROVIDERS: ATTEND Urology
DX: N20.0 Calculus of kidney (principal); N20.1 Calculus of ureter; Z46.6 Encounter for fitting and adjustment of urinary device; N13.30 Unspecified hydronephrosis; N40.1 Benign prostatic hyperplasia with lower urinary tract symptoms; N13.8 Other obstructive and reflux uropathy; R35.1 Nocturia; R39.14 Feeling of incomplete bladder emptying; N32.89 Other specified disorders of bladder; R80.9 Proteinuria, unspecified; N32.3 Diverticulum of bladder; N52.9 Male erectile dysfunction, unspecified; K21.9 Gastro-esophageal reflux disease without esophagitis; K42.9 Umbilical hernia without obstruction or gangrene; E66.9 Obesity, unspecified; F17.210 Nicotine dependence, cigarettes, uncomplicated; Z01.818 Encounter for other preprocedural examination; Z01.812 Encounter for preprocedural laboratory examination; Z20.822 Contact with and (suspected) exposure to COVID-19; Z84.1 Family history of disorders of kidney and ureter
CPT/HCPCS: 36415 ×2; 52332; 52352; 74018; 74420; 80048; 82948; 85025; 88300; C1766; C1769; C2617; J0360; J0696; J1100; J1580; J2001; J2250; J2405; J2704; J3010; J3490; Q9967; U0002

== ENCOUNTER → 2022-06-06 | Day surgery (SDC) | payer BC ==
[2022-06-04 09:54] LABS: BASOPHILS # (AUTO) 0.1 (0.0-0.1); BASOPHILS % 1.5 % (0.0-1.0); EOSINOPHILS # (AUTO) 0.1 (0.0-0.4); HEMATOCRIT 41.8 % (38.2-49.6); HEMOGLOBIN 14.1 g/dL (14.0-18.0); LYMPHOCYTES # (AUTO) 1.1 (1.0-3.2); LYMPHOCYTES % 26.1 % (18.0-39.1); MEAN CORPUSCULAR HEMOGLOBIN 34.6 pg (28-32); MEAN CORPUSCULAR HGB CONC 33.7 g/dL (31-35); MEAN CORPUSCULAR VOLUME 102.5 fL (81-99); MONOCYTES # (AUTO) 0.5 (0.2-0.8); MONOCYTES % 13.2 % (4.4-11.3); NEUTROPHILS # (AUTO) 2.3 (2.1-6.9); PLATELET COUNT 129 x10e3/uL (140-360); RED BLOOD COUNT 4.08 x10e6/uL (4.3-5.7); RED CELL DISTRIBUTION WIDTH 13.2 % (11.7-14.4)
[2022-06-04 10:12] LABS: ANION GAP 19.1 mmol/L (8-16); CALCIUM 8.4 mg/dL (8.4-10.2); CREATININE, SERUM 0.86 mg/dL (0.72-1.25); POTASSIUM 4.1 mmol/L (3.5-5.1)
[~2022-06-06] MED LIST changes: +ATROPINE SULFATE 1 MG/ML VIAL ONE; -BELLADONNA/OPIUM 30 MG SUPP RC ONE; -EPHEDRINE SULFATE INJ 50 MG/ML VIAL ONE; -GENTAMICIN 80MG/NS 100 ML 200 ML IV ONE; -HYDRALAZINE HCL 20 MG/ML VIAL ONE; -IOPAMIDOL 610MG/1ML 300 MG/ML VIAL IV ONE; -LABETALOL HCL 0 ML ONE; -LABETALOL HCL 20 ML ONE
[2022-06-06 12:08] VITALS: BP 152/106
== END | disposition home or self-care (01) ==
LOC: OR 07:59
PROVIDERS: ATTEND Urology
DX: N20.0 Calculus of kidney (principal); Z96.0 Presence of urogenital implants; K21.9 Gastro-esophageal reflux disease without esophagitis; I10 Essential (primary) hypertension; Z01.818 Encounter for other preprocedural examination; Z01.812 Encounter for preprocedural laboratory examination; Z20.822 Contact with and (suspected) exposure to COVID-19
CPT/HCPCS: 0223U; 36415; 50590; 74018; 80048; 85025; J0461; J0696; J1100; J2001; J2250; J2405; J2704; J3010